=== PATIENT | female | born 1960 | race Caucasian/White ===

== ENCOUNTER 2020-05-18 13:16 | Outpatient (CLI) | payer MEDICARE, MEDICAID, SELFPAY ==
--- NOTE | 2020-05-21 11:03 | WPDPFTINT ---
PFT Interpretation PFT Interpretation: This PFT met all criteria for ATS standards and reproducibility FEV/FVC post bronchodilator 80% FEV1 72% or 1.32 liters FVC 66% or 1.66 liters TLC 83% or 3.21 liters RV 103% RV/TLC 46% DLCO 63% or 12.7 liters when adjusted for alveolar volume but not adjusted for hemoglobin Flow volume loops appeared restricted Impression: No significant obstruction or restriction. Mildly reduced diffusion capacity. In the absence of anemia or pulmonary hypertension, intrinsic lung disease may still be present. Clinical and radiographic correlation is advised.
--- NOTE | 2020-05-21 11:06 | WPDSIXMINUTE ---
Six Minute Walk Six Minute Walk: The patients O2 sats started at 95% and dropped as low as 93% Total walk distance 304.8 meters conclusion: This patient does not qualify for home oxygen use
== END 2020-05-18 13:17 | disposition home or self-care (01) ==
PROVIDERS: PCP Nurse Practitioner; Visit Provider Nurse Practitioner
DX: J45.909 Unspecified asthma, uncomplicated (principal)
CPT/HCPCS: 94060; 94618; 94726; 94729

== ENCOUNTER 2022-08-09 17:36 | Outpatient (CLI) | payer MEDICARE, MEDICAID, SELFPAY ==
--- NOTE | ~2022-08-09 | MM_ITS ---
EXAMINATION: MM screening mackenzie BI w jim HISTORY: Screening mammogram TECHNIQUE: Craniocaudal and mediolateral oblique 3-D tomosynthesis images were obtained and synthetic 2-D images were generated. CAD analysis was submitted and interpreted. COMPARISON: 01/05/2011, 12/14/2009 bilateral screening mammogram examinations BREAST PARENCHYMAL COMPOSITION: The breasts are almost entirely fatty. FINDINGS: There is no evidence of suspicious mass, calcification, or architectural distortion to sugg est malignancy in either breast. There has been no suspicious interval change. IMPRESSION: 1. No mammographic evidence of malignancy. 2. Recommend routine screening mammography in one year. BI-RADS Category 1: Negative Reviewed, dictated and finalized at location A. RS SUPERINTENDENT
== END 2022-08-09 17:37 | disposition home or self-care (01) ==
PROVIDERS: PCP Nurse Practitioner; Visit Provider Nurse Practitioner
DX: Z12.31 Encounter for screening mammogram for malignant neoplasm of breast (principal)
CPT/HCPCS: 77063; 77067

== ENCOUNTER 2022-09-27 10:43 | Outpatient (CLI) | payer MEDICARE, MEDICAID, SELFPAY ==
--- NOTE | ~2022-09-27 | US_ITS ---
US abdomen limited INDICATION: Elevated liver enzymes PROCEDURE: Realtime right upper abdominal ultrasound. COMPARISON: No prior studies for comparison. FINDINGS: The pancreas is normal without focal mass or pancreatic ductal dilation. Liver echotexture is increased, consistent with fatty infiltration. There is normal directional flow in the portal ve in. Gallbladder is surgically absent. Common bile duct measures 7 mm. No sonographic Britt's sign. IMPRESSION: 1: Fatty infiltration of the liver. Reviewed, dictated and finalized at location L. BLENDER
== END 2022-09-27 10:44 | disposition home or self-care (01) ==
PROVIDERS: PCP Nurse Practitioner; Visit Provider Nurse Practitioner
DX: R74.8 Abnormal levels of other serum enzymes (principal); K76.0 Fatty (change of) liver, not elsewhere classified
CPT/HCPCS: 76705

== ENCOUNTER 2022-11-18 14:11 | Outpatient (CLI) | payer MEDICARE, MEDICAID, SELFPAY ==
[2022-11-18 15:07] LABS: Hemoglobin A1C 5.2 % (<5.7)
[2022-11-18 15:11] LABS: Alanine Aminotransferase 51 U/L (6-35); Albumin Level 4.5 g/dL (3.5-5.1); Alkaline Phosphatase 128 U/L (38-126); Anion Gap 4 mmol/L (8-16); Aspartate Amino Transferase 47 U/L (14-36); Bilirubin,Total 0.6 mg/dL (0.2-1.3); Blood Urea Nitrogen 11 mg/dL (7-17); Carbon Dioxide 34 mmol/L (22-30); Chloride 102 mmol/L (98-107); Cholesterol 216 mg/dL (0-200); Estimated Glomerular Filt Rate > 60; Glucose 87 mg/dL (65-110); HDL Direct 87 mg/dL; Sodium 140 mmol/L (137-145); Triglycerides 152 mg/dL (<150)
[2022-11-18 15:17] LABS: Iron 56 ug/dL (37-170)
[2022-11-18 15:22] LABS: LDL Cholesterol Direct 92 mg/dL
[2022-11-18 15:28] LABS: Percent Iron Saturation 13 % (20-50)
[2022-11-18 15:34] LABS: Free T4 Free Thyroxine 1.46 ng/mL (0.78-2.19)
[2022-11-18 15:40] LABS: Thyroid Stimulating Hormone 0.227 uIU/mL (0.465-4.680)
[2022-11-22 21:44] LABS: Mitochondrial (M2) Ab (IgG) <=20.0 U (<=20.0)
[2022-11-23 04:54] LABS: Triiodothyronine T3 Free 3.1 pg/mL (2.3-4.2)
[2022-11-23 21:55] LABS: LKM 1 Antibody <=20.0 U (<=20.0)
== END 2022-11-18 14:12 | disposition home or self-care (01) ==
PROVIDERS: PCP Nurse Practitioner; Visit Provider Internal Medicine Endocrinology, Diabetes & Metabolism
DX: E11.9 Type 2 diabetes mellitus without complications (principal); E03.9 Hypothyroidism, unspecified; E78.5 Hyperlipidemia, unspecified; R74.01 Elevation of levels of liver transaminase levels
CPT/HCPCS: 36415; 80053; 80061; 82248; 83036; 83520; 83540; 83550; 84439; 84443; 84481; 86038; 86376

== ENCOUNTER 2022-11-19 11:14 | Outpatient (NON) | payer MEDICARE, MEDICAID, SELFPAY ==
[2022-11-19 14:13] LABS: Creatinine Urine 42.1 mg/dL
[2022-11-19 14:18] LABS: Microalbumin Urine Random 16.4 mg/L (0-16.7)
== END 2022-11-19 11:15 | disposition home or self-care (01) ==
PROVIDERS: PCP Nurse Practitioner; Visit Provider Internal Medicine Endocrinology, Diabetes & Metabolism
DX: E11.9 Type 2 diabetes mellitus without complications (principal); E03.9 Hypothyroidism, unspecified; E78.5 Hyperlipidemia, unspecified; R74.01 Elevation of levels of liver transaminase levels
CPT/HCPCS: 82043

== ENCOUNTER 2023-04-05 15:58 | Outpatient (CLI) | payer MEDICARE, MEDICAID, SELFPAY ==
--- NOTE | ~2023-04-05 | CT_ITS ---
CT Scan of the Chest without Contrast: Clinical Indication: Pulmonary STACY infection Technique: Contiguous sections were acquired throughout the chest without intravenous contrast. Dose reduction technique was used on this scan by utilizing automated exposure control and iterative recon struction technique. The dose-length product (DLP) was 330.20 mGy-cm. Findings: There is no evidence of any significant mediastinal, hilar or axillary lymphadenopathy. The mediastin al soft tissues appear normal. There is no evidence of pleural or pericardial effusion. There is cystic bronchiectasis in the left lung base/left lower lobe. No other airspace opacities are clearly identified.. Images through the upper abdomen reveal no abnormalities. Impression: Cystic bronchiectatic change at the left lung base/left lower lobe. Reviewed, dictated and finalized at location . Impression: Cystic bronchiectatic change at the left lung base/left lower lobe.
== END 2023-04-05 15:59 | disposition home or self-care (01) ==
PROVIDERS: PCP Nurse Practitioner; Visit Provider Nurse Practitioner
DX: A31.0 Pulmonary mycobacterial infection (principal)
CPT/HCPCS: 71250

== ENCOUNTER 2024-06-18 09:33 | Outpatient (CLI) | payer MEDICARE, MEDICAID, SELFPAY ==
--- NOTE | ~2024-06-18 | US_ITS ---
Limited ABDOMINAL ULTRASOUND (Doppler ultrasound interrogation techniques used as needed for this exa m.) Ordering provider: MARIA C Balderas History: . R74.8 - Abnormal levels of other serum enzymes . Comparison: None. FINDINGS: PANCREAS: Partially visualized. Otherwise, Normal echotexture and size. PORTAL VEIN: Hepatopedal flow demonstrated. LIVER: Normal size and increased echotexture suggestive of fat infiltration. No focal hepatic lesions or perihepatic fluid collections are identified. BILIARY DUCTS: No intra or extrahepatic biliary dilation. Common bile duct measures 7.6 mm in diamete r which is normal for patient's age. GALLBLADDER: Status post cholecystectomy. FREE FLUID: None visualized within the upper abdomen. IMPRESSION: Status post cholecystectomy. Fat infiltration. Otherwise, normal limited abdominal ultrasound. Reviewed, dictated and finalized at location A. ASE CONTROL INSPECTOR IMPRESSION: Status post cholecystectomy. Fat infiltration. Otherwise, normal limited abdomi nal ultrasound.
== END 2024-06-18 09:34 | disposition home or self-care (01) ==
PROVIDERS: Visit Provider Nurse Practitioner Family
DX: R74.8 Abnormal levels of other serum enzymes (principal); K76.0 Fatty (change of) liver, not elsewhere classified; Z90.49 Acquired absence of other specified parts of digestive tract
CPT/HCPCS: 76705

== ENCOUNTER 2025-01-10 08:55 | Outpatient (CLI) | payer MEDICARE, MEDICAID, SELFPAY ==
--- NOTE | ~2025-01-10 | DEXA_ITS ---
Bone Density Report Name: BRYCE MARADIAGA Age: 64 Sex: Female Ethnicity: White Date of : 1960 Indication: postmenopausal; screening for osteoporosis; height loss; Referring Provider: TREY, JAVIER Jones Study: Bone densitometry was performed. Exam Date: January 10, 2025 Accession number: [id number] Bone Density: Region BMD T-score Z-score Classification AP Spine(L1-L4) 0.650 -3.6 -1.9 Osteoporosis Femoral Neck (Left) 0.759 -0.8 0.7 Normal Total Hip (Left) 0.753 -1.5 -0.3 Osteopenia Femoral Neck (Right) 0.626 -2.0 -0.5 Osteopenia Total Hip (Right) 0.800 -1.2 0.0 Osteopenia Total Hip Mean 0.777 -1.4 -0.2 Osteopenia World Health Organization criteria for BMD impression classify patients as: Normal (T-score at or above -1.0), Osteopenia (T-score between -1.0 and -2.5), or Osteoporosis (T-score at or below -2.5). 10-year Fracture Risk: FRAX not reported because: Some T-score for Spine Total or Hip Total or Femoral Neck at or below -2.5 Clinical Information Provided by Patient: Patient maximum height was 59 Menopause Age: 55 No regular weight bearing exercise Drinks caffeinated beverages Onset of menses at age 12 Number of children 2 Impression: The patient has osteoporosis, based on the Total Spine T-score. Discussion: INCREASED RISK OF FRACTURE. BONE DENSITY IS UNDESIRABLY LOW AT ONE OR MORE SKELETAL SITES, CONSISTENT WITH POSTMENOPAUSAL OSTEOPOROSIS. This patient's lowest T-score meets the World Health Organization's (WHO) criteria for osteoporosis at one or more sites (T-score -2.5 or below). In untreated patients, the risk of osteoporotic fracture increases approximately two-fold for each 1.0 SD decrease in T-score. Low bone density is not the only risk factor for fracture; also consider factors such as patient's age, frailty or poor health, risk of falling, risk of injury, previous osteoporotic fracture, family history of osteoporosis, cigarette smoking, low body weight, etc. Not everyone with low bone mineral density has osteoporosis; osteomalacia and other metabolic bone disorders should also be considered. Patients who have osteoporosis should be evaluated for specific diseases and conditions (secondary causes) that may cause or contribute to bone loss. The [place] Association of Clinical Endocrinologists (AACE) and National Osteoporosis Foundation (NOF) recommend pharmacologic intervention for all postmenopausal women whose T-score is in this range. The patient should follow a healthful lifestyle (good nutrition with adequate calcium and vitamin D, and appropriate weight-bearing exercise). Follow-Up: Consider a repeat BMD and Vertebral Fracture Assessment (VFA) exam in 2 years or sooner if medically necessary, to reassess this patient's status. Reported by: JAMIE on 01/10/2025 9:38:00 AM. Reviewed, dictated and finalized at location A.
--- OUTSIDE RECORDS SUMMARY | 2025-01-10 09:02 | XMS_ITS | Encounter Summary ---
Author Organization [facility] Healthcare Address [address] [place] [address] Care Team Providers Care Oil Pit Attendant Name Role Phone Unknown, Sarah Primary Care Provider Unavail able Encounter Details Date Type Department Care Team (Late st Contact Info) Description 01/06/2025 Results Follow-Up [facility] Pulmonary at [address] [place] [address] Ruslan Andre, [address] [facility] [address] [place] [address] Aerobic culture and gram stain Sputum Sputum Social History Tobacco Use Types Packs/Day Years Used Date Smoking Tobacco: Former Cigarettes Passive Smoke Exposure: Past Comments:10/01/2024 Patient said that she only smoked for 10days. 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
--- OUTSIDE RECORDS SUMMARY | 2025-01-10 09:02 | XMS_ITS | Clinical Summary ---
Author Organization [address] Address [address] [place] [id number] Care Team Providers Care Mobility Developer Name Role Phone Unknown, Notinfile Primary Care Provider Unavail able Allergies No known active allergies Medications amitriptyline (ELAVIL) 100 mg tablet Take 1 tablet (100 mg total) by mouth daily 4 Active aspirin 81 mg chewable tablet Take 1 tablet (81 mg total) by mouth daily 3 Active atorvastatin (LIPITOR) 40 mg tablet Take 1 tablet (40 mg total) by mouth daily 3 Active cholestyramine (QUESTRAN) 4 gram powder DISSOLVE 4 GRAMS OF POWDER IN LIQUID AND DRINK THREE TIMES DAILY 4 Active denosumab (Prolia) 60 mg/mL syringe 2 Active ethambutoL (MYAMBUTOL) 400 mg tablet TAKE 2 TABLETS BY MOUTH ON MONDAY, MONDAY AND Monday 2 Active famotidine (PEPCID) 40 mg tablet Take 1 tablet (40 mg total) by mouth daily 4 Active furosemide (LASIX) 20 mg tablet TAKE 1 TABLET BY MOUTH IN THE MORNING FOR 14 DAYS 4 Active icosapent ethyL (Vascepa) 1 gram capsule TAKE 2 CAPSULES BY MOUTH TWICE DAILY BEFORE MEAL(S) 2 Active levothyroxine (SYNTHROID) 150 mcg tablet Take 1 tablet (150 mcg total) by mouth 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 DO NOT EXCEED A TOTAL OF 3 DOSES IN 15 MINUTES [address] (PROTONIX) 40 mg EC tablet TAKE 1 TABLET BY MOUTH ONCE DAILY IN THE MORNING BEFORE BREAKFAST Active potassium chloride ER 10 mEq CR tablet Take 1 tablet/capsule (10 mEq total) by mouth daily Active rifAMPin (RIFADIN) 300 mg capsule Take by mouth 2 Active rOPINIRole (REQUIP) 1 mg tablet TAKE 1 TABLET BY MOUTH IN THE EVENING 2-3 HOURS BEFORE BEDTIME 4 Active benzonatate (TESSALON) 200 mg capsuleIndicatio ns:Acute lower respiratory infection Take 1 capsule (200 mg total) by mouth 3 (three) times a day as needed for cough keep tessalon out of reach of children, especially children under the age of 10, due to possible serious risk such as if ingested by children under the age of 10. 30 capsule 4 Active Additional Information Patient not taking.Reported on 01/02/2025 inhalational spacing device spacer 1 each daily 1 each 5 Active budesonide-formo teroL (Symbicort) 160-4.5 mcg/actuation inhaler Inhale 2 puffs 2 (two) times a day 1 each 11 5 Active Ventolin HFA 90 mcg/actuation inhaler Inhale 2 puffs every 4 (four) hours as needed for wheezing 1 each 11 5 Active Active Problems Problem Noted Date Diagnosed Date Moderate persistent asthma without complication 01/06/2025 Bronchiectasis without acute exacerbation 2024 Encounters Date Type Department Care Team Description 01/06/2025 Results Follow-Up [facility] Pulmonary at [address] [place] [address] Ruslan Andre DO Aerobic culture and gram stain Sputum Sputum 01/02/2025 11:00 AM CDT Office Visit [facility] Pulmonary at [place] [address] [facility] [address] [place] [address] Ruslan Andre DO Moderate persistent asthma without complication (Primary Dx); Bronchiectasis without acute exacerbation (HCC) 01/02/2025 9:59 AM CDT - 01/02/2025 11:59 PM CDT Hospital Encounter [facility] [address] [place] [address] Bronchiectasis without acute exacerbation (HCC) Discharge Disposition: Discharge to home or self care from Last 3 Months Medical History Medical History Date Comments COPD (chronic obstructive pulmonary disease) (HC C) Asthma Family History Medical History Relation Name Comments COPD Father Diabetes Father Heart disease Father COPD Mother Heart disease Mother COPD Sister Mariella lorenzo dm Sister Mariella Relation Name Status Comments Father Mother Sister Mariella Alive Social History Tobacco Use Types Packs/Day Years Used Date Smoking Tobacco: Former Cigarettes Passive Smoke Exposure: Past Tobacco Cessation:Counseling Given: Not Answered Comments:10/01/2024 Patient said that she only smoked for 10days. 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 Gender Identity Not on file Sexual Orientation Not on file Obstetrics History Last Filed Vital Signs Vital Sign Reading Time Taken Comments Blood Pressure 129/82 01/02/2025 10:26 AM CDT Pulse 101 01/02/2025 10:26 AM CDT Temperature 36.5 C (97.7 F) 01/02/2025 10:26 AM CDT Respiratory Rate 18 01/02/2025 10:26 AM CDT Oxygen Saturation 96% 01/02/2025 10:26 AM CDT Inhaled Oxygen Concentration - - Weight 78.7 kg (173 lb 6.4 oz) 01/02/2025 10:26 AM CDT Height 162.6 cm (5' 4) 01/02/2025 10:26 AM CDT Body Mass Index 29.76 01/02/2025 10:26 AM CDT Plan of Treatment Health Maintenance Due Date Last Done Comments Colon Cancer Screening-Colonoscopy 1960 Depression Screening 1960 Hepatitis C Screening 1960 DTaP/Tdap/Td Vaccine (1 - Tdap) 1971 Hepatitis B Screening 1978 Regular Well Visit/Exam 18-64 1978 Breast Cancer Screening-Mammogram 08/09/2023 023, 08/09/2022 Covid-19 Vaccine (3 - 2023-2 5 season) 2024 11/21/2020, 10/27/2020 Cervical Cancer Screening 07/22/2025 07/22/2024 Pneumococcal vaccine <65 (3 of 3 - PCV20 or PCV21) 05/23/2027 05/23/2022, 11/23/2015 Zoster Vaccine Completed 06/12/2023, 03/31/2023 Influenza Vaccine Completed 05/30/2024, , 05/23/2022, Additional history exists Procedures Procedure Name Priority Date/Time Associated Diagnosis Comments AEROBIC CULTURE AND GRAM STAIN Routine 01/02/2025 10:12 AM CDT Bronchiectasis without acute exacerbation (HCC) from Last 3 Months Results * Aerobic culture and gram stain Sputum Sputum (01/02/2025 10:12 AM CDT) Direct Specimen Exam Stain: Abundant squamous epithelial cells seen indicating excessive oropharyngeal contamination. Culture will not be processed further. Please submit another specimen. Smear results called to and read back by: Sandy Klein MT on 01/02/2025 13:36:00 by: Abdifatah Hanna MLS Comment:Testing performed by : [facility], [address] [place] [address], [place]., [address] Report Final Report: This is the final report. PRINCE PETERSON (BELA) Comment:Testing performed by : [facility], [address] [place]., [address] Sputum (Sputum) 01/02/2025 1 0:12 AM CDT 01/02/2025 12:23 PM CDT Narrative PRINCE PETERSON (BELA) - 01/03/2025 8:00 AM CDT Testing performed by [facility] Microbiology Laboratory ([phone]) Specimens submitted from normally sterile body sites will have all bacterial morphotypes identified. Specimens that contain grossly mixed aminah and/or are from body sites that are not normally sterile will be examined for Staphylococcus aureus, Pseudomonas aeruginosa, beta-hemolytic strep, vancomycin-resistant Enterococcus and fungus. If any of these are isolated, the organism will be reported. Current interpretive data was last revised on 2016. Ruslan Jaylonsrinath Andre DO LAB MICROBIOLOGY - GENERA L ORDERABLES Final Result [facility] ([place]) [address] [facility] Department [place] [address] from Last 3 Months Insurance [facility] MEDICARE Care Teams Mobility Developer Relationship Specialty Start Date End Date Unknown, Notinfile PCP - General 09/20/23
--- OUTSIDE RECORDS SUMMARY | 2025-01-10 09:02 | XMS_ITS | Referral Summary ---
Author Organization [address] Address [address] [place] [id number] Care Team Providers Care Help Desk Analyst Name Role Phone Unknown, Notinfile Primary Care Provider Unavail able Encounters Date Type Department Care Team Description 01/06/2025 Results Follow-Up [facility] Pulmonary at [address] [place] [address] Ruslan Andre DO Aerobic culture and gram stain Sputum Sputum 01/02/2025 9:59 AM CDT - 01/02/2025 11:59 PM CDT Hospital Encounter [address] [phone] Bronchiectasis without acute exacerbation (HCC) Discharge Disposition: Discharge to home or self care 01/02/2025 11:00 AM CDT Office Visit [facility] Pulmonary at [address] [place] [phone] Ruslan Andre DO Moderate persistent asthma without complication (Primary Dx); Bronchiectasis without acute exacerbation (HCC) from Last 3 Months Allergies No known active allergies Medications amitriptyline [...] 1 tablet (150 mcg total) 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, [address] [place]., [address] Report Final Report: This is the final report. PRINCE PETERSON (BELA) Comment:Testing performed by : [facility], [address] [place]., [address] Sputum (Sputum) 01/02/2025 1 0:12 AM CDT 01/02/2025 12:23 PM CDT Narrative PRINCE PETERSON ([place]ELA) - 01/03/2025 8:00 AM CDT Testing performed by [facility] Microbiology Laboratory ([phone]) Specimens submitted from normally sterile body sites will have all bacterial morphotypes identified. Specimens that contain grossly mixed aminah and/or are from body sites that are not normally sterile will be examined for Staphylococcus aureus, Pseudomonas aeruginosa, beta-hemolytic strep, vancomycin-resistant Enterococcus and fungus. If any of these are isolated, the organism will be reported. Current interpretive data was last revised on 2016. Ruslan Andre DO LAB MICROBIOLOGY - GENERA L ORDERABLES Final Result PRINCE PETERSON ([place]) [address] [facility] Department [place] [address] from Last 3 Months Insurance [place] [id number] Care Teams Help Desk Analyst Relationship Specialty Start Date End Date Unknown, Notinfile PCP - General 09/20/23
--- OUTSIDE RECORDS SUMMARY | 2025-01-10 09:03 | XMS_ITS | Data Portability ---
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 Plan of Treatment Reminders Order Date Submit Date Provider Last Modified By Organization Details Last Modified Time Details Appointments None recorded. Lab None recorded. Referral endocrinolo gy referral 2022 023 [email or web address] Janey Richardson MD, [address],, [address], [address], 3 15:38:59 Procedures None recorded. Surgeries None recorded. Imaging CT, chest, w/o contrast [address] [facility], [address] [facility] [address], [place], [address], 3 09:46:46 Medication Orders levothyroxi ne 150 mcg tablet 2022 023 [facility] [place], [address], 3 16:28:34 Patient TargetsNo targets recorded. Patient InstructionsNo instructions recorded. Reason for Referral Endocrinology Referral for W ell controlled type 2 diabetes mellitus Referring Physician: Betty Diallo, Endocrinology, Encounter Date: 2023 Results Created Date Observation Date Name Description Value Unit Range Abnormal Flag Note LastModifiedBy Organization Detail LastModifiedTime 04/06/20 23 04/05/2023 CT, chest , w/o contr ast No observ ation record ed. [email or web address] [place] [address] Imaging [address] [facility] [address], [place], [address], 04/09/2023 15:40:04 Result Notes None recorded. 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 Active 2020 Not Available [facility] 3 02:45:43 Insomnia 991086768 Active Not Available [facility] 3 02:45:43 Asthma 351521529 Active Not Available [facility] 3 02:45:43 Gastroesop hageal reflux disease 429355171 Active 2018 Not Available [facility] 3 02:45:43 Heart irregularl y irregular 939639884 Completed Not Available [facility] 3 02:45:43 Gastroesop hageal reflux disease without esophagiti s 723642113 Active 2021 Not Available [facility] 3 02:45:43 Menopausal and postmenopa usal disorders 750354243 Active Not Available [facility] 3 02:45:43 Dyspnea 211187246 Active Not Available [facility] 3 02:45:43 Restless legs 66508938 Active Not Available [facility] 3 02:45:43 Restrictiv e lung disease 23081341 Active Not Available [facility] 3 02:45:43 Hypertensi ve disorder 67253734 Active Not Available [facility] 3 02:45:43 Dysphagia 67970940 Active 2021 Not Available [facility] 3 02:45:43 Hypothyroi dism 09828552 Active 2018 Not Available [facility] 3 02:45:43 Obesity 124746687 Active Not Available [facility] 3 02:45:44 Periodic limb movement disorder 684835226 Active Not Available [facility] 3 02:45:44 Hyperlipid emia 42567802 Active Not Available [facility] 3 02:45:44 Dyspnea on exertion 07194812 Active 2020 Not Available [facility] 3 02:45:44 Osteoporos is 52214029 Active Not Available [facility] 3 02:45:44 Obstructiv e sleep apnea syndrome 63500582 Active Not Available [facility] 3 02:45:44 Well controlled type 2 diabetes mellitus 679934440 Active 2022 Abbi Booth RMA null, [facility] 3 15:15:59 Dyslipidem ia 100523434 Active 2022 Abbi Booth RMA null, [facility] 3 15:16:49 Problem Notes None recorded. Procedures Surgical History Date Name Laterality Status Provider Name and Address Organization Details Recorded Time 11/01/2021 Endoscopy completed Not Available [facility] 09/28/2022 02:40:33 Imaging Results None recorded. Procedure Notes None recorded. Medical Equipment None Reported. Allergies Allergen ID Allergen Name Allergen Category Reaction Reaction Severity Criticality Documentation Date Start Date Code Code System Note Provider Name and Address Organization Details Recorded Time 3969 amlodipin e medicatio n dizziness Not available Not available 09/28/2022 76906 RxNorm Not Available [facility] 3 02:51:43 Medications Name Sig Start Date Stop Date Status Note LastModified by Organization Details LastModified Time losartan 50 mg tablet TK ONE T PO QAM FOR 30 DAYS active Not Available Not Available No t Available cyclobenz aprine 10 mg tablet TK 1 T PO QHS active Not Available Not Available No t Available amoxicill in 500 mg capsule Take 1 capsule 3 times a day by oral route for 7 days. active Not Available Not Available No t Available atorvasta tin 40 mg tablet TAKE 1 TABLET BY MOUTH NIGHTLY AT BEDTIME active Not Available Not Available No t Available levothyro xine 137 mcg tablet TAKE 1 TABLET BY MOUTH ONCE DAILY IN THE MORNING 03/20 completed Not Available Not Available Not Available prednison e 10 mg tablet Take by oral route. active Not Available Not Available No t Available atorvasta tin 20 mg tablet TAKE 1 TABLET BY MOUTH NIGHTLY AT BEDTIME active Not Available Not Available No t Available carvedilo l 12.5 mg tablet Take 1 tablet twice a day by oral route. 2013 active Not Available Not Available Not Avai lable ropinirol e 1 mg tablet TAKE 1 TABLET BY MOUTH IN THE EVENING 2-3 HOURS BEFORE BEDTIME active Not Available Not Available No t Available trazodone 50 mg tablet TK 1 T PO QHS active Not Available Not Available No t Available azithromy luis felipe 250 mg tablet Take 1 dose pk by oral route. 02/24 completed Not Available Not Available Not Available nitroglyc ponce 0.3 mg sublingua l tablet DISSOLVE ONE TABLET UNDER THE TONGUE EVERY 5 MINUTES NEEDED FOR CHEST PAIN. DO NOT EXCEED A TOTAL OF 3 DOSES IN 15 MINUTES NOW active Not Available Not Available No t Available metoprolo l tartrate 100 mg tablet Take 1 tablet by oral route. 12/01 completed Not Available Not Available Not Available benzonata te 200 mg capsule Take 1 capsule 3 times a day by oral route as needed. 02/03 completed Not Available Not Available Not Available metoprolo l succinate ER 50 mg tablet,ex tended release 24 hr TK 1 T PO D active Not Available Not Available No t Available ondansetr on HCl 4 mg tablet 02/24 completed Not Available Not Available Not Available prednison e 20 mg tablet active Not Available Not Available Not Available alendrona te 70 mg tablet TAKE 1 TABLET BY MOUTH EVERY WEEK active Not Available Not Available No t Available metoprolo l succinate ER 100 mg tablet,ex tended release 24 hr TAKE 1 TABLET BY MOUTH ONCE DAILY active Not Available Not Available No t Available Children' s Aspirin 81 mg chewable tablet CHEW AND SWALLOW 1 TABLET BY MOUTH ONCE DAILY active Not Available Not Available No t Available Debrox 6.5 % ear drops active Not Available Not Available Not Available potassium chloride ER 10 mEq tablet,ex tended release TAKE 1 TABLET BY MOUTH ONCE DAILY active Not Available Not Available No t Available amlodipin e 5 mg tablet Take 1 tablet every day by oral route. active Not Available Not Available No t Available ciproflox acin 500 mg tablet TK 1 T PO Q 12 H FOR 10 DAYS active Not Available Not Available No t Available peg-elect rolyte solution 420 gram oral solution TK PO UTD. DRK HALF AT 5 PM ON 07/17 AND HALF AT 5 AM ON 07/18 completed Not Available Not Available Not Available omeprazol e 40 mg capsule,d elayed release TAKE 1 CAPSULE BY MOUTH ONCE DAILY active Not Available Not Available No t Available tramadol 50 mg tablet Take 1 tablet twice a day by oral route as needed for 5 days. 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 04/27 completed Not Available Not Available Not Available oxycodone -acetamin ophen 5 mg-325 mg tablet 02/24 completed Not Available Not Available Not Available rifampin 300 mg capsule TAKE ONE TABLET BY MOUTH ON MONDAY, , AND MONDAY active Not Available Not Available No t Available amitripty line 25 mg tablet Take 1 tablet every day by oral route. active Not Available Not Available No t Available Euthyrox 125 mcg tablet TAKE 1 TABLET BY MOUTH ONCE DAILY IN THE MORNING 11/04 completed Not Available Not Available Not Available Euthyrox 112 mcg tablet TAKE 1 TABLET BY MOUTH ONCE DAILY IN THE MORNING FOR 30 DAYS 11/10 completed Not Available Not Available Not Available trazodone 100 mg tablet TK 1 T PO QHS 02/24 completed Not Available Not Available Not Available ropinirol e 0.25 mg tablet Take 1 tablet every day by oral route. active Not Available Not Available No t Available ethambuto l 400 mg tablet TAKE 2 TABLETS BY MOUTH ON MONDAY, Y AND MONDAY active Not Available Not Available No t Available levothyro xine 50 mcg tablet TK 1 T PO QAM active Not Available Not Available No t Available pantopraz ole 40 mg tablet,de layed release TAKE 1 TABLET BY MOUTH ONCE DAILY IN THE MORNING BEFORE BREAKFAS T active Not Available Not Available No t Available simvastat in 20 mg tablet TAKE 1 TABLET BY MOUTH EVERY DAY active Not Available Not Available No t Available Euthyrox 88 mcg tablet Take 1 tablet by oral route. 12/01 completed Not Available Not Available Not Available cyanocoba awais (vit B-12) 1,000 mcg/mL injection solution Inject 1 mL every week by subcutan eous route in the morning for 90 days. 03/20 completed Not Available Not Available Not Available levothyro xine 150 mcg tablet TAKE 1 TABLET BY MOUTH ONCE DAILY IN THE MORNING active Not Available Not Available No t Available Prevalite 4 gram powder for suspensio n in a packet DISSOLVE 1 PACKET IN WATER & DRINK THREE TIMES DAILY active Not Available Not Available No t Available lisinopri l 20 mg-hydroc hlorothia zide 25 mg tablet TAKE 1 TABLET BY MOUTH ONCE DAILY active Not Available Not Available No t Available bisacodyl 5 mg tablet,de layed release TK ALL 6 TS PO AT 8 AM ON 07/17 completed Not Available Not Available Not Available furosemid e 20 mg tablet TAKE 1 TABLET BY MOUTH IN THE MORNING FOR 14 DAYS active Not Available Not Available No t Available mirtazapi ne 15 mg tablet TK 1 T PO QD PRN. active Not Available Not Available No t Available ergocalci ferol (vitamin D2) 1,250 mcg (50,000 unit) capsule Take 1 capsule every week by oral route. active Not Available Not Available No t Available lisinopri l 10 mg-hydroc hlorothia zide 12.5 mg tablet TAKE 1 TABLET BY MOUTH ONCE DAILY active Not Available Not Available No t Available methylpre dnisolone 4 mg tablets in a dose pack FPD 01/15 completed Not Available Not Available Not Available losartan 100 mg tablet TK 1 T PO QD active Not Available Not Available No t Available metformin ER 500 mg tablet,ex tended release 24 hr active Not Available Not Available Not Available amitripty line 100 mg tablet TAKE 1 TABLET BY MOUTH NIGHTLY AT BEDTIME active Not Available Not Available No t Available Ambien 5 mg tablet Take 1 tablet every day by oral route at bedtime. 2013 active Not Available Not Available Not Avai lable dicyclomi ne 10 mg capsule TK ONE C PO TID PRN 04/27 completed Not Available Not Available Not Available naproxen 500 mg tablet TAKE 1 TABLET BY MOUTH ONCE DAILY NEEDED active Not Available Not Available No t Available amoxicill in 875 mg-potass ium clavulana te 125 mg tablet TK 1 T PO Q 12 H FOR 10 DAYS 02/24 completed Not Available Not Available Not Available Ventolin HFA 90 mcg/actua tion aerosol inhaler INHALE 2 PUFFS BY MOUTH EVERY 4 HOURS NEEDED FOR WHEEZING active Not Available Not Available No t Available cholecalc iferol (vitamin D3) 25 mcg (1,000 unit) capsule Take 1 tablet by oral route. 03/20 completed Not Available Not Available Not Available azithromy luis felipe 500 mg tablet TAKE 1 TABLET BY MOUTH ON MONDAY, AND 03/20 completed Not Available Not Available Not Available cholestyr amine (with sugar) 4 gram powder for susp in a packet DISSOLVE & TAKE 1 POWDER BY MOUTH THREE TIMES DAILY 04/25 completed Not Available Not Available Not Available potassium chloride ER 10 mEq tablet,ex tended release(p art/cryst ) Take 1 tablet by oral route. 12/01 completed Not Available Not Available Not Available nitrofura ntoin monohydra te/macroc rystals 100 mg capsule 03/30 completed Not Available Not Available Not Available lisinopri l-hydroch lorothiaz coby active Not Available Not Available Not Available Calcium 500 + D 10/23 completed Not Available Not Available Not Available fenofibra te nanocryst allized 48 mg tablet TAKE 1 TABLET BY MOUTH IN THE EVENING 03/20 completed Not Available Not Available Not Available Symbicort 160 mcg-4.5 mcg/actua tion HFA aerosol inhaler INHALE 2 PUFFS BY MOUTH TWICE DAILY active Not Available Not Available No t Available Prolia 60 mg/mL subcutane ous syringe Inject 1ML SC q 6 months- bring to PCP office for administ ration active Pt brought in medicati on Not Available Not Available Not Available Vitamin D3 50 mcg (2,000 unit) capsule Take 1 capsule every day by oral route. 11/30 completed Not Available Not Available Not Available Caltrate with Vitamin D3 600 mg-20 mcg (800 unit) tablet Take 1 tablet by oral route. 03/20 completed Not Available Not Available Not Available Vascepa 1 gram capsule Take 2 capsules twice a day by oral route before meals for 90 days. active Not Available Not Available No t Available Trulicity 1.5 mg/0.5 mL subcutane ous pen injector INJECT 1 MG SUBCUTAN EOUSLY ONCE A WEEK AT DINNER 03/20 completed Not Available Not Available Not Available Trulicity 0.75 mg/0.5 mL subcutane ous pen injector INJECT 1 PEN SUBCUTAN EOUSLY ONCE A WEEK 05/05 completed Not Available Not Available Not Available Spiriva Respimat tk 2 puffs 2 times daily 01/22 completed Not Available Not Available Not Available Spiriva Respimat 1.25 mcg/actua tion solution for inhalatio n 2 pufs by inhalati on route. 2021 active Not Available Not Available Not Avai lable Bydureon BCise 2 mg/0.85 mL subcutane ous auto-inje ctor INJECT 1 SYRINGE SUB-Q ONCE A WEEK AT DINNER active Not Available Not Available No t Available Ozempic 0.25 mg or 0.5 mg (2 mg/1.5 mL) subcutane ous pen injector INJECT 0.5 MG SUBCUTAN EOUSLY ONCE WEEKLY AT DINNER 11/04 completed Not Available Not Available Not Available Afluria Qd (36 mos up)(PF)60 mcg (15 mcg x4)/0.5 mL IM syringe ADM 0.5ML IM UTD 06/05 completed Not Available Not Available Not Available Ozempic 1 mg/dose (4 mg/3 mL) subcutane ous pen injector Inject by subcutan eous route for 90 days. 02/03 completed Not Available Not Available Not Available aspirin 81 mg capsule Take 1 capsule every day by oral route. active Not Available Not Available No t Available Vitals Date Recorded Body height Body mass index (BMI) Body weight Heart rate Oxygen saturation Oxygen saturation in Arterial blood by Pulse oximetry Systolic blood pressure Diastolic blood pressure Provider Name and Address Organization Details Last Updated DateTime 3 149.86 cm 36 kg/m2 15007.4 4 g 80 /min 96 % 96 % 118 mm[Hg] 84 mm[Hg] Lenore Gibbons [facility] [employer] 3 14:39:59 Date Recorded Body height Body mass index (BMI) Body weight Body temperature Respiratory rate Heart rate Systolic blood pressure Diastolic blood pressure Provider Name and Address Organization Details Last Updated DateTime 3 149.86 cm 34 kg/m2 31123.9 6 g 97.8 [degF] 16 /min 71 /min 156 mm[Hg] 96 mm[Hg] Minal Saldana RN [facility] [employer] 3 15:02:41 Date Recorded Body mass index (BMI) Body mass index (BMI) Body height Oxygen saturation Oxygen saturation in Arterial blood by Pulse oximetry Heart rate Body temperature Body weight Body weight Systolic blood pressure Diastolic blood pressure Systolic blood pressure Diastolic blood pressure Provider Name and Address Organization Details Last Updated DateTime 2 34.9 kg/m2 34.7 kg/m2 149.86 cm 98 % 98 % 70 /min 97.4 [degF] 68627.4 8 g 60221.8 9 g 105 mm[Hg] 80 mm[Hg] 118 mm[Hg] 76 mm[Hg] Not Available [facility] 3 02:44:36 Date Recorded Body height Body mass index (BMI) Body weight Body temperature Heart rate Oxygen saturation Oxygen saturation in Arterial blood by Pulse oximetry Systolic blood pressure Diastolic blood pressure Provider Name and Address Organization Details Last Updated DateTime 3 149.86 cm 32.9 kg/m2 09463.5 6 g 97.2 [degF] 52 /min 99 % 99 % 150 mm[Hg] 78 mm[Hg] Lenore Gibbons [facility] [employer] 3 14:22:34 Date Recorded Body height Body temperature Provider Ashely alexandra and Address Organization Details Last Updated DateTime 06/26/2023 149.86 cm 96.4 [degF] Ann Pelayo MA [facility] [employer] 06/26/2023 14:06:51 Social History Question Answer Notes LastModified by Organizat ion Details LastModified Time Tobacco Smoking Status Former Smoker Not Available [facility] 09/28/2022 02:39:04 Do You Have An Advance Directive? No [id number] Information not available 09/28/2022 What Is Your Level Of Caffeine Consumption? Moderate [id number].[id number] Information not available 09/28/2022 How Much Tobacco Do You Chew? None [id number].[id number] Information not available 09/28/2022 In The 14 Days Before Symptom Onset, Have You Had Close Contact With A Laboratory-confirm ed COVID-19 While That Case Was Ill? No [id number] Information not available 09/28/2022 In The 14 Days Before Symptom Onset, Have You Had Close Contact With A Person Who Is Under Investigation For COVID-19 While That Person Was Ill? No [id number] Information not available 09/28/2022 What Type Of Diet Are You Following? REGULAR [id number] Information not available 09/28/2022 Which Illicit Or Recreational Drugs Have You Used? None [id number].[id number] [id number] Information not available 09/28/2022 What Is The Highest Grade Or Level Of School You Have Completed Or The Highest Degree You Have Received? [id number] [id number].[id number] 5150 Information not available 09/28/2022 Have There Been Any Changes To Your Family Or Social Situation? No [id number].[id number] 8499 Information not available 09/28/2022 Are There Any Guns Present In Your Home? No [id number] Information not available 09/28/2022 Where Do You Live? Apartment MIGRATION .[id number] Information not available 09/28/2022 Do You Have A Medical Power Of Cloud Subject Matter Expert? No [id number] 0382 Information not available 09/28/2022 What Was The Date Of Your Most Recent Tobacco Screening? 05/05/2022 [id number] Information not available 09/28/2022 Have You Ever Been Counseled For Unhealthy Alcohol Use? No MIGRATION.380461 1251 Information not available 09/28/2022 What Is Your Relationship Status? MIGRATION.507229 6442 Information not available 09/28/2022 Do You Use Your Seat Belt Or Car Seat Routinely? Yes [id number].[id number] Information not available 09/28/2022 Do You Have Smoke And Carbon Monoxide Detectors In Your Home? Yes [id number].[id number] 5160 Information not available 09/28/2022 Are You Passively Exposed To Smoke? No MIGRATION.411454 0646 Information not available 09/28/2022 Do You Use Sunscreen Routinely? No MIGRATION.[id number] 1248 Information not available 09/28/2022 Have You Recently Traveled Abroad? No MIGRATION.[id number] 3488 Information not available 09/28/2022 Do You Have Any Dietary Restrictions? No MIGRATION.646639 1165 Information not available 09/28/2022 Sex: Female Functional Status Question Answer Note LastModified by Organizat ion Details LastModified Time Do you use any illicit or recreational drugs? No MIGRATION.[id number] 9605 Information not available 09/28/2022 Do you or have you ever used any other forms of tobacco or nicotine? No MIGRATION.[id number] 1328 Information not available 09/28/2022 What is your level of alcohol consumption? Moderate MIGRATION.825351 6743 Information not available 09/28/2022 Do you or have you ever used smokeless tobacco? Never used smokeless tobacco MIGRATION.[id number] 2067 Information not available 09/28/2022 What is your occupation? disabled MIGRATION.011380 2511 Information not available 09/28/2022 Do you or have you ever used e-cigarettes or vape? Never used electronic cigarettes MIGRATION.475341 9849 Information not available 09/28/2022 What is your exercise level? Moderate MIGRATION.[id number] 9394 Information not available 09/28/2022 Mental Status Question Answer Note LastModified by Organizat ion Details LastModified Time Do you feel stressed (tense, restless, nervous, or anxious, or unable to sleep at night)? [id number] Information not available 09/28/2022 Family History Nothing Reported. Medical History Condition Response OTHER # 1 LUNG DISEASE/DISORDER INSOMNIA Y HIGH CHOLESTEROL / HYPERLIPIDEMIA Y HYPOTHYROIDISM Y OBESITY Y GERD/NAUSEA Y OSTEOPOROSIS Y DIABETES, TYPE Y HYPERTENSION Y Gynecological HistoryNo gynecological history recorded. Obstetrics History GPAL:G 0 P 0 0 0 0 Immunizations Vaccine Type Date Status Note Provider Nam e and Address Organization Details Recorded Time Influenza, split virus, quadrivalent, preservative 0 completed Not Available [facility] 09/28/2022 02:51:35 Influenza, split virus, quadrivalent, preservative 9 completed Not Available [facility] 09/28/2022 02:51:35 COVID-19, mRNA, LNP-S, PF, 30 mcg/0.3 mL dose 1 completed Not Available [facility] 09/28/2022 02:51:35 COVID-19, mRNA, LNP-S, PF, 30 mcg/0.3 mL dose 1 completed Not Available [facility] 09/28/2022 02:51:36 Influenza, split virus, quadrivalent, PF 1 completed Not Available [facility] 09/28/2022 02:51:36 Influenza, split virus, quadrivalent, PF 7 completed Not Available [facility] 09/28/2022 02:51:36 Influenza, split virus, quadrivalent, preservative 6 completed Not Available [facility] 09/28/2022 02:51:36 pneumococcal polysaccharide PPV23 6 completed Not Available [facility] 09/28/2022 02:51:36 Past Encounters Encounter ID Performer Location Encounter Start Date Encounter Closed Date Diagnosis/Indication Diagnosis SNOMED-CT Code Diagnosis ICD10 Code Diagnosis Note [id number] [facility] [address] [place] [id number] 10/23/2020 00:00:00 10/23/2020 15:35:16 [id number] MD NIK Uriostegui IGRATION_ DEFAULT_1 _1 , 11/10/2020 00:00:00 11/10/2020 17:14:21 [id number] [facility] [address] [place] [id number] 01/22/2021 00:00:00 01/22/2021 16:49:31 [id number] Manju weston MD S_[facility] Internal Med [facility] [address] [place] [id number] 02/09/2021 00:00:00 02/09/2021 14:01:42 [id number] MD NIK Uriostegui IGRATION_ DEFAULT_1 _1 , 03/09/2021 00:00:00 03/09/2021 17:15:19 [id number] MD NIK Driver IGRATION_ DEFAULT_1 _1 , 03/18/2021 00:00:00 03/18/2021 13:26:40 [id number] [facility] [place] [facility] [place] [address] [place] [address] 03/26/2021 00:00:00 03/26/2021 15:41:01 [id number] Manju weston MD [facility] [facility] [address] [place] [address] 05/18/2021 00:00:00 05/18/2021 13:39:59 [id number] [facility] [place] [address] [place] [address] 06/01/2021 00:00:00 06/01/2021 15:49:45 [id number] MD NIK Driver IGRATION_ DEFAULT_1 _1 , 07/01/2021 00:00:00 07/01/2021 10:54:31 [id number] Manju weston MD S_GMG Internal Med [facility] [address] [place] [address] 08/17/2021 00:00:00 08/17/2021 15:04:01 [id number] [facility] Pul[facility] [place] [address] [place] [address] 09/28/2021 00:00:00 09/28/2021 15:37:22 [id number] _STACI EPSTEIN_Sadia _NATHALIE_Lisa IGRATION_ DEFAULT_1 _1 , 10/13/2021 00:00:00 10/13/2021 14:56:30 [id number] MD NIK Driver IGRATION_ DEFAULT_1 _1 , 11/04/2021 00:00:00 11/04/2021 10:09:37 [id number] Manju weston MD [facility] [address] [address] 11/04/2021 00:00:00 11/04/2021 17:35:15 [id number] _ATHN_MIGR ATION_1 _ATHISRRAEL_M IGRATION_ DEFAULT_1 _1 , 12/01/2021 00:00:00 12/01/2021 15:29:35 [id number] NATALIE Hills [facility] [place] [place] [address] [place] [address] 01/14/2022 00:00:00 01/14/2022 16:03:30 [id number] Manju weston MD [facility] [address] [address] 02/03/2022 00:00:00 02/03/2022 10:43:37 [id number] Manju weston MD [facility] [address] [address] 05/05/2022 00:00:00 05/05/2022 14:52:25 [id number] Betty Diallo MD _ATHENA_M IGRATION_ DEFAULT_1 _1 , 05/05/2022 00:00:00 05/05/2022 10:28:08 [id number] [facility] [place] [address] [place] [address] 01/18/2023 14:08:43 01/18/2023 17:55:22 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 Completed triple therapy (started 07/2020)18 months + of treatmentC XR WNL he ck CT chest Bronchiectasis [id number] J47.9 Continue flutter valve Obstructiv e sleep apnea syndrome [id number] G47.33 Home study 11/15/18 with AHI 5.2.She remains on CPAP 10 cmH2O.With consistent use her AHI is well correctedD iscussed the tisks of uncorrecte d RK, including deathEncou raged 100% compliance with all sleepDiscu ssed the risks of uncorrecte d RK, including .Foll ow with PCM for labsAdvise d good sleep habits and patterns:- Set a goal for at least 7 to 8 hours of sleep time per day.-Use the bed mainly for sleep and to go to bed only when tired. If unable to fall asleep after 30 minutes, patient should get out of bed but should not engage in any activity that requires sustained mental alertness. -Maintain a regular bedtime and wake-up time even on weekends-A void excessive naps during the daytime. If a nap is necessary, limit it to no more than 30 minutes.-M inimize environmen mane noise, bright lights, and extremes in bedroom temperatur e.-Avoid alcohol, caffeinate d beverages, and nicotine products for at least 6 hours prior to bedtime.-A void strenuous exercise and large meals for at least 4 hours prior to bedtime. [id number] Betty Diallo MD [facility]G [facility] [place] [address] [place] [address] 2023 14:58:46 2023 15:38:59 Well controlled type 2 diabetes mellitus [id number] E11.9 a1c in range- continue metformin and trulicity 1.5 mg SQ weekly. Discussed carb counting and how to read food labels. Recommende d patient to utilize the diabetesfo [employer] from the ADA website to help with food preparatio n as this presents ideal carb content per meal so this will make carb counting much easier for patient. Recommende d she incorporat e natural insulin order taker s such as pears, apples, cinnamon, anni and sweet potatoes to help mobilize her endogenous insulin. Recommende d up to 150 minutes of moderate level activity/e xercise weekly. Hypothyroidism [id number] E03.9 Continue on LT4 but uptitrate to 150 mcg daily- she just picked up higher dose as TSH of 7 uIU/mL on lower dose. She was reminded to take her LT4 on empty stomach with glass of water and wait one hour to eat or have her coffee in morning and up to 4 hours if ever taking any heartburn or reflux medication s to help optimize absorption . Discussed paleo like diet with restrictio n of GMOs to help with energy and to optimize absorption of vitamins and minerals and reduce inflammati on. Dyslipidemia [id number] E 78.5 Continue statin therapy as LDL in range. Spent up to 25 minutes preparing to see the patient (eg, review of tests), obtaining and/or reviewing separately obtained history, performing a medically appropriat e examinatio n and evaluation , counseling and educating the patient, ordering medication s, tests, along with documentin g clinical informatio n in the electronic health record, independen tly interpreti ng results and communicat ing results to the patient. Patient can be followed by PCP - she/he is aware of my resignatio n and last day of May 12. If needed his/her PCP can refer patient to another endocrinol ogist in the area. All questions /concerns answered and refills necessary at visit today. [id number] Cristel Dior, [facility]monolo gy [place] [address] [place] [address] 05/12/2023 14:00:26 05/12/2023 15:02:10 Bronchiectasis [id number] J47.9 REordered flutter valve today and instruted on use. Pulmonary Mycobacterium avium complex infection [id number] A31.0 Completed triple therapy (started 07/2020)18 months + of treatmentC XR WNL 2CT chest 03/2023 with persistent bronchiect asis to LLL, unchanged. Flutter valve as above Obstructiv e sleep apnea syndrome [id number] G47.33 Home study 11/15/18 with AHI 5.2.She remains on CPAP 10 cmH2O.With consistent use her AHI was well correctedD iscussed the risks of uncorrecte d RK, including deathWill order repair through the [employer] with PCM for labsAdvise d good sleep habits and patterns:- Set a goal for at least 7 to 8 hours of sleep time per day.-Use the bed mainly for sleep and to go to bed only when tired. If unable to fall asleep after 30 minutes, patient should get out of bed but should not engage in any activity that requires sustained mental alertness. -Maintain a regular bedtime and wake-up time even on weekends-A void excessive naps during the daytime. If a nap is necessary, limit it to no more than 30 minutes.-M inimize environmen mane noise, bright lights, and extremes in bedroom temperatur e.-Avoid alcohol, caffeinate d beverages, and nicotine products for at least 6 hours prior to bedtime.-A void strenuous exercise and large meals for at least 4 hours prior to bedtime. [id number] Cristel Dior, [employer]- [facility]G Pulmonolo gy [place] [address] [place] [address] 06/26/2023 14:01:49 06/26/2023 15:15:31 Bronchiectasis [id number] J47.9 Continue flutter valveDiscu ssed the risks of bronchiect asis and the importance of mucous clearance Pulmonary Mycobacterium avium complex infection [id number] A31.0 Completed triple therapy (started 07/2020)18 months + of treatmentC XR WNL T chest 03/2023 with persistent bronchiect asis to LLL, unchanged. Flutter valve as aboveRepea t CT in one year, 03/2024 Obstructiv e sleep apnea syndrome [id number] G47.33 Home study 11/15/18 with AHI 5.2.She remains on CPAP 10 cmH2O.Disc ussed the risks of uncorrecte d RK, including deathWill order repair through the [employer] with PCM for labsAdvise d good sleep habits and patterns:- Set a goal for at least 7 to 8 hours of sleep time per day.-Use the bed mainly for sleep and to go to bed only when tired. If unable to fall asleep after 30 minutes, patient should get out of bed but should not engage in any activity that requires sustained mental alertness. -Maintain a regular bedtime and wake-up time even on weekends-A void excessive naps during the daytime. If a nap is necessary, limit it to no more than 30 minutes.-M inimize environmen mane noise, bright lights, and extremes in bedroom temperatur e.-Avoid alcohol, caffeinate d beverages, and nicotine products for at least 6 hours prior to bedtime.-A void strenuous exercise and large meals for at least 4 hours prior to bedtime. Health Concerns Section Related Observation LastModified by Organization Detai ls LastModified Time None Recorded Concern Status LastModified by Organization Details LastModified Time None Recorded Advance Directives Directive N: Payers Insurance Date Sequence Insurance Name Policy Number Policy Devi Covered Member ID Devi Member ID Guarantor Name 06/23/2023 1 [place] Silvia Winter [id number] Silvia Moy 06/23/2023 2 [place] WHEN MEDICARE OR MEDICARE REPLACEMENT PRIMARY) Silvia Moy [id number] Silvia Moy Notes Date Note Type Note Provider Name and Address Organization Details Recorded Time 3 text/html Silvia presents to follow up on bronchiectasis, sputum positive for AFB with triple therapy treatment, RK, asthma, burning sensation in throat/dysphagiaShrona reports she has been doing well but continues intermittent compliance with PAPShe has a mask leak at times and tells me that she will just take it off instead of repositioningContinues to report some fatigueRare cough, does wake at night with coughing occasionally. This is associated with sour taste in her mouth.She has not been exercising.Finished triple therapy as prescribed by ID for AFB - rifampin, ethambutol, azithromycin.She denies weight loss, chest pain, thick or copious sputum production.No exacerbations in the last year requiring steroids or antibiotics.No night sweats, hemoptysis, skin or vision changes Cristel Dior, [facility] [address] [facility], [facility] [address], [place], [address], [facility] 01/18/2023 20:11:02 3 text/html 63 yo female comes in for follow up in management of well controlled type 2 DM (A1C of 5.4%), hypothyroidism, and dyslipidemia. last seen in Apr at that time we had patient continue on metformin Er 500 mg daily with dinner. We had patient uptitrate trulicity to 1.5 mg SQ weekly as patient tolerating low dose well. No hypoglycemia but has struggled with weight gain. She is taking LT4 137 mcg daily. We just sent in 150 mcg dose and just started. She is taking atorvastatin 20 mg daily at bedtime. She is doing well otherwise no new concerns. Sugars running under 120 mg/dL with no hypoglycemia. labs from 02/23/23:TSH of 7.100 uIU/mlFT4 of 1.03 ng/dLglucose 83 mg/dlLFT highiron 20%LKM/FIDEL neghepatitis negative Betty Diallo MD [address] [facility] [address], [place], [address], [place] 2023 16:29:31 3 text/html Silvia presents to follow up on bronchiectasis, sputum positive for AFB with triple therapy treatment, RK, asthmaShrona reports she has been doing well but a part on her PAP is broken and she has not had luck with getting replacement or repair.Continues to report some fatigueRare cough, does wake at night with coughing occasionally.She has not been exercising, is mostly sedentaryFinished triple therapy as prescribed by ID for AFB - rifampin, ethambutol, azithromycin.She denies weight loss, chest pain, thick or copious sputum production.No exacerbations in more than a year requiring steroids or antibiotics.No night sweats, hemoptysis, skin or vision changes NATALIE Hills [address], [address], [place], [address], [employer] 05/14/2023 15:56:12 3 text/html Silvia presents to follow up on bronchiectasis, sputum positive for AFB with triple therapy treatment, RK, asthmaShe got her replacement PAP part and has been compliant with nightly use.Continues to report some fatigueRare cough, does wake at night with coughing occasionally.Finished triple therapy as prescribed by ID for AFB - rifampin, ethambutol, azithromycin.She denies weight loss, chest pain, thick or copious sputum production.No exacerbations in more than a year requiring steroids or antibiotics.No night sweats, hemoptysis, skin or vision changesMontanae is sedentaryNo respiratory infection since last OV NATALIE Hills [address], [address], [place], [address], [place] [facility] 06/26/2023 16:10:44 OBGyn Episode No OBEpisode recorded.
--- OUTSIDE RECORDS SUMMARY | 2025-01-10 09:03 | XMS_ITS | Data Portability ---
[facility] [address] [facility] [place] [address] Assessment No assessment recorded. Plan of Treatment Reminders Order Date Submit Date Provider Last Modified By Organization Details Last Modified Time Details Appointments None recorded. Lab urinalysis complete, reflex culture 2014 015 [email or web address] [facility], [address], [address], [place], [address], 5 09:52:57 TSH, serum or plasma 2014 015 [email or web address] [facility], [address] [facility] [address], [address], [place], [address], 5 09:52:57 CMP, serum or plasma 2014 015 [email or web address] [facility], [address], [address], [place], [address], 5 09:52:57 HbA1c (hemoglobi n A1c), blood 2014 015 NATHALIE [facility], [address], [address], [place], [address], 5 07:21:02 CBC w/ auto diff 2014 015 [email or web address] [facility], [address], [address], [place], [address], 5 09:52:57 lipid panel, serum 2014 015 [email or web address] [facility], [address] [facility], [address], [place], [address], 5 09:52:57 CK (creatine kinase), total, serum 2014 015 NATHALIE [facility], [address] [facility], [address], [place], [address], 5 07:21:06 uric acid, serum or plasma 2014 015 NATHALIE [facility], [address] [facility], [address], [place], [address], 5 07:21:05 vitamin B12 + folate, serum or blood 2014 015 NATHALIE [facility], [address] [place] [address], [address], [place], [address], 5 07:21:01 vitamin D3, 25-hydroxy , serum 2014 015 NATHALIE [facility], [address] [facility], [address], [place], [address], 5 07:21:03 Referral pulmonolog ist referral - possible sleep apnea . Please eval and treat . thanks 2014 Josue [email or web address] Jorge A Rogers MD, [address] [facility], [address], [place], [address], 5 13:48:53 Procedures None recorded. Surgeries None recorded. Imaging None recorded. Medication Orders Symbicort 160 mcg-4.5 mcg/actuat ion HFA aerosol inhaler 2014 015 [email or web address] [facility][id number], [address] [facility], [place], [place], [id number], 5 12:30:35 ProAir HFA 90 mcg/actuat ion aerosol inhaler 2014 015 [email or web address] [facility], [address], [place], [place], [id number], 5 12:30:35 amitriptyl ine 100 mg tablet 2014 015 [email or web address] 6 [facility], [address], [place], [place], [id number], 5 12:30:36 Debrox 6.5 % ear drops 2014 015 [email or web address] [facility], [address], [place], [place], [id number], 5 12:30:35 levothyrox ine 50 mcg tablet 2014 015 [email or web address] 6 [facility], [address], [place], [place], [id number], 5 12:30:35 Symbicort 160 mcg-4.5 mcg/actuat ion HFA aerosol inhaler 2014 [address] [facility], [address], [place], [place], [id number], 5 12:03:12 ProAir HFA 90 mcg/actuat ion aerosol inhaler 2014 0[address] INTER[address] [facility], [address], [place], [place], [id number], 5 12:03:13 alendronat e 70 mg tablet 2014 015 [email or web address] 6 [facility], [address], [place], [place], [id number], 5 12:01:54 atorvastat in 40 mg tablet 2014 015 [email or web address] 6 [facility] #18694, [address], [place], [place], [id number], 5 12:01:54 trazodone 50 mg tablet 2014 015 [email or web address] 6 [facility] #20932, [address], [place], [place], [id number], 5 16:42:32 cyclobenza susie 10 mg tablet 2014 015 [email or web address] 6 [facility] #43196, [address], [place], [place], [id number], 5 16:42:32 prednisone 20 mg tablet 2014 015 [email or web address] 6 [facility] #45144, [address], [place], [place], [id number], 5 16:42:32 ciprofloxa luis felipe 500 mg tablet 2014 015 [email or web address] 6 [facility] #55798, [address], [place], [place], [id number], 5 16:42:32 levothyrox ine 50 mcg tablet 2014 015 [email or web address] 6 [facility] #14421, [address], [place], [place], [id number], 5 16:42:33 Patient TargetsNo targets recorded. Patient InstructionsNo instructions recorded. 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 Please eval and treat . thanks Referring Physician: Noel Maria, Family Medicine, Encounter Date: 07/16/2015 Results Created Date Observation Date Name Description Value Unit Range Abnormal Flag Note LastModifiedBy Organization Detail LastModifiedTime 04/08/20 15 04/09/2015 CBC w/ auto diff WBC 13.1 x10e3 /uL 3.4-10 .8 above high normal Not Available [facility] ([facility]) [address] [place], [address], 04/10/2015 07:21:00 04/08/20 15 04/09/2015 CBC w/ auto diff RBC 4.33 x10e6 /uL 3.77-5 .28 Not Available [facility] ([facility]) [address] [place], [address], 04/10/2015 07:21:00 04/08/20 15 04/09/2015 CBC w/ auto diff hemoglobin 14.1 g/dL 11.1-1 5.9 Not Available [facility] ([facility]) [address] [place], [address], 04/10/2015 07:21:00 04/08/20 15 04/09/2015 CBC w/ auto diff hematocrit 42.8 % 34.0-4 6.6 Not Available [facility] ([facility]) [address] [place], [address], 04/10/2015 07:21:00 04/08/20 15 04/09/2015 CBC w/ auto diff MCV 99 fL 79-97 above high normal Not Available [facility] ([facility]) [address] [place], [address], 04/10/2015 07:21:00 04/08/20 15 04/09/2015 CBC w/ auto diff MCH 32.6 pg 26.6-3 3.0 Not Available [facility] ([facility]) [address] [place], [address], 04/10/2015 07:21:00 04/08/20 15 04/09/2015 CBC w/ auto diff MCHC 32.9 g/dL 31.5-3 5.7 Not Available [facility] ([facility]) [address], [place], [address], 04/10/2015 07:21:00 04/08/20 15 04/09/2015 CBC w/ auto diff RDW 12.9 % 12.3-1 5.4 Not Available [facility] ([facility]) [address], [place], [address], 04/10/2015 07:21:00 04/08/2004/09/2015 CBC w/ auto diff platelets 282 x10e3 /uL 150-37 9 Not Available [facility] ([facility]) [address] [facility], [place], [address], 04/10/2015 07:21:00 04/08/20 15 04/09/2015 CBC w/ auto diff neutrophils 58 % Not Available [facility]) [address] [facility], [place], [address], 04/10/2015 07:21:00 04/08/20 15 04/09/2015 CBC w/ auto diff lymphs 31 % Not Available [facility] ([facility]) [address] [facility], [place], [address], 04/10/2015 07:21:00 04/08/2004/09/2015 CBC w/ auto diff monocytes 9 % Not Available [facility] ([facility]) [address] [facility], [place], [address], 04/10/2015 07:21:00 04/08/20 15 04/09/2015 CBC w/ auto diff eos 2 % Not Available [facility] ([facility]) [address] [facility], [place], [address], 04/10/2015 07:21:00 04/08/20 15 04/09/2015 CBC w/ auto diff basos 0 % Not Available [facility] ([facility]) [address] [place], [address], 04/10/2015 07:21:00 04/08/20 15 04/09/2015 CBC w/ auto diff immature cells [place] Not Available [facility]) [address] [place], [address], 04/10/2015 07:21:00 04/08/20 15 04/09/2015 CBC w/ auto diff neutrophils (absolute) 7.7 x10e3 /uL 1.4-7. 0 above high normal Not Available [facility] ([facility]) [address] [place], [address], 04/10/2015 07:21:00 04/08/20 15 04/09/2015 CBC w/ auto diff lymphs (absolute) 4.0 x10e3 /uL 0.7-3. 1 above high normal Not Available [facility] ([facility]) [address] [place], [address], 04/10/2015 07:21:00 04/08/20 15 04/09/2015 CBC w/ auto diff monocytes(ab solute) 1.2 x10e3 /uL 0.1-0. 9 above high normal Not Available [facility] ([facility]) [address] [place], [address], 04/10/2015 07:21:00 04/08/20 15 04/09/2015 CBC w/ auto diff eos (absolute) 0.2 x10e3 /uL 0.0-0. 4 Not Available [facility] ([facility]) [address] [place], [address], 04/10/2015 07:21:00 04/08/20 15 04/09/2015 CBC w/ auto diff baso (absolute) 0.0 x10e3 /uL 0.0-0. 2 Not Available [facility] ([facility]) [address] [facility], [place], [address], 04/10/2015 07:21:00 04/08/20 15 04/09/2015 CBC w/ auto diff immature granulocytes 0 % Not Available [facility]) [address] [facility] [place], [address], 04/10/2015 07:21:00 04/08/20 15 04/09/2015 CBC w/ auto diff immature grans (abs) 0.0 x10e3 /uL 0.0-0. 1 Not Available [facility] ([facility]) [address] [facility], [place], [address], 04/10/2015 07:21:00 04/08/2004/09/2015 CBC w/ auto diff NRBC [place] Not Available [facility] ([facility]) [address] [facility], [place], [address], 04/10/2015 07:21:00 04/08/2004/09/2015 CBC w/ auto diff hematology comments: [place] Not Available [facility]) [address] [facility], [place], [address], 04/10/2015 07:21:00 04/08/20 15 04/09/2015 CMP, serum or plasm a glucose, serum 83 mg/dL 65-99 Not Available [facility] ([facility]) [address] [facility] [place], [address], 04/10/2015 07:21:00 04/08/20 15 04/09/2015 CMP, serum or plasm a BUN 12 mg/dL 6-24 Not Available [facility] ([facility]) [address] [facility] [place], [address], 04/10/2015 07:21:00 04/08/20 15 04/09/2015 CMP, serum or plasm a creatinine, serum 0.77 mg/dL 0.57-1 .00 Not Available [facility] ([facility]) [address] [place], [address], 04/10/2015 07:21:00 04/08/20 15 04/09/2015 CMP, serum or plasm a eGFR if nonafricn AM 87 mL/mi n/1.7 3 >59 Not Available [facility] ([facility]) [address] [facility], [place], [address], 04/10/2015 07:21:00 04/08/20 15 04/09/2015 CMP, serum or plasm a eGFR if africn AM 101 mL/mi n/1.7 3 >59 Not Available [facility] ([facility]) [address] [facility], [place], [address], 04/10/2015 07:21:00 04/08/2004/09/2015 CMP, serum or plasm a BUN/creatini ne ratio 16 9-23 Not Available [facility] ([facility]) [address] [place], [address], 04/10/2015 07:21:00 04/08/2004/09/2015 CMP, serum or plasm a sodium, serum 140 mmol/ L 134-14 4 Not Available [facility] ([facility]) [address] [place], [address], 04/10/2015 07:21:00 04/08/2004/09/2015 CMP, serum or plasm a potassium, serum 3.6 mmol/ L 3.5-5. 2 Not Available [facility] ([facility]) [address] [place], [address], 04/10/2015 07:21:00 04/08/2004/09/2015 CMP, serum or plasm a chloride, serum 101 mmol/ L 97-108 Not Available [facility] ([facility]) [address] [place], [address], 04/10/2015 07:21:00 04/08/2004/09/2015 CMP, serum or plasm a carbon dioxide, total 26 mmol/ L 18-29 Not Available [facility] ([facility]) [address] [place], [address], 04/10/2015 07:21:00 04/08/2004/09/2015 CMP, serum or plasm a calcium, serum 9.0 mg/dL 8.7-10 .2 Not Available [facility] ([facility]) [address] [place], [address], 04/10/2015 07:21:00 04/08/2004/09/2015 CMP, serum or plasm a protein, total, serum 6.5 g/dL 6.0-8. 5 Not Available [facility] ([facility]) [address] [place], [address], 04/10/2015 07:21:00 04/08/2004/09/2015 CMP, serum or plasm a albumin, serum 4.3 g/dL 3.5-5. 5 Not Available [facility] ([facility]) [address] [place], [address], 04/10/2015 07:21:00 04/08/2004/09/2015 CMP, serum or plasm a globulin, total 2.2 g/dL 1.5-4. 5 Not Available [facility] ([facility]) [address] [place], [address], 04/10/2015 07:21:00 04/08/2004/09/2015 CMP, serum or plasm a A/G ratio 2.0 1.1-2. 5 Not Available [facility] ([facility]) [address] [place], [address], 04/10/2015 07:21:00 04/08/2004/09/2015 CMP, serum or plasm a bilirubin, total 0.4 mg/dL 0.0-1. 2 Not Available [facility] ([facility]) [address] [place], [address], 04/10/2015 07:21:00 04/08/2004/09/2015 CMP, serum or plasm a alkaline phosphatase, S 106 IU/L 39-117 Not Available [facility] ([facility]) [address] [facility], [place], [address], 04/10/2015 07:21:00 04/08/2004/09/2015 CMP, serum or plasm a AST (SGOT) 14 IU/L 0-40 Not Available [facility] ([facility]) [address] [place], [address], 04/10/2015 07:21:00 04/08/2004/09/2015 CMP, serum or plasm a ALT (SGPT) 18 IU/L 0-32 Not Available [facility] ([facility]) [address] [place], [address], 04/10/2015 07:21:00 04/08/2004/09/2015 urina lysis compl ete, refle x cultu re specific gravity 1.014 1.005- 1.030 Not Available [facility] ([facility]) [address] [place], [address], 04/10/2015 07:21:00 04/08/2004/09/2015 urina lysis compl ete, refle x cultu re pH 7.0 5.0-7. 5 Not Available [facility] ([facility]) [address] [place], [address], 04/10/2015 07:21:00 04/08/2004/09/2015 urina lysis compl ete, refle x cultu re urine-color YELLOW yellow Not Available [facility] ([facility]) [address] [place], [address], 04/10/2015 07:21:00 04/08/2004/09/2015 urina lysis compl ete, refle x cultu re appearance CLOUDY clear abnormal Not Available [facility] ([facility]) [address] [place], [address], 04/10/2015 07:21:00 04/08/20 15 04/09/2015 urina lysis compl ete, refle x cultu re WBC esterase 1+ negati ve abnormal Not Available [facility] ([facility]) [address] [place], [address], 04/10/2015 07:21:00 04/08/20 15 04/09/2015 urina lysis compl ete, refle x cultu re protein NEGATI VE negati ve/tra ce Not Available [facility] ([facility]) [address] [place], [address], 04/10/2015 07:21:00 04/08/20 15 04/09/2015 urina lysis compl ete, refle x cultu re glucose NEGATI VE negati ve Not Available [facility] ([facility]) [address] [place], [address], 04/10/2015 07:21:00 04/08/20 15 04/09/2015 urina lysis compl ete, refle x cultu re glucose reflex [place] Not Available [facility] ([facility]) [address] [place], [address], 04/10/2015 07:21:00 04/08/20 15 04/09/2015 urina lysis compl ete, refle x cultu re ketones NEGATI VE negati ve Not Available [facility] ([facility]) [address] [place], [address], 04/10/2015 07:21:00 04/08/20 15 04/09/2015 urina lysis compl ete, refle x cultu re occult blood NEGATI VE negati ve Not Available [facility] ([facility]) [address] [place], [address], 04/10/2015 07:21:00 04/08/20 15 04/09/2015 urina lysis compl ete, refle x cultu re bilirubin NEGATI VE negati ve Not Available [facility] ([facility]) [address] [place], [address], 04/10/2015 07:21:00 04/08/20 15 04/09/2015 urina lysis compl ete, refle x cultu re urobilinogen ,semi-qn 0.2 mg/dL 0.0-1. 9 Not Available [facility] ([facility]) [address] [place], [address], 04/10/2015 07:21:00 04/08/20 15 04/09/2015 urina lysis compl ete, refle x cultu re nitrite, urine NEGATI VE negati ve Not Available [facility] ([facility]) [address] [place], [address], 04/10/2015 07:21:00 04/08/2004/09/2015 urina lysis compl ete, refle x cultu re microscopic examination SEE BELOW: MICRO SCOPI C WAS INDIC ATED AND WAS PERFO RMED. Not Available [facility] ([facility]) [address] [place], [address], 04/10/2015 07:21:00 04/08/20 15 04/09/2015 urina lysis compl ete, refle x cultu re WBC 6-10 /hpf 0 - 5 abnormal Not Available [facility] ([facility]) [address] [place], [address], 04/10/2015 07:21:00 04/08/20 15 04/09/2015 urina lysis compl ete, refle x cultu re RBC 0-2 /hpf 0 - 2 Not Available [facility] ([facility]) [address] [place], [address], 04/10/2015 07:21:00 04/08/20 15 04/09/2015 urina lysis compl ete, refle x cultu re epithelial cells (non renal) 0-10 /hpf 0 - 10 Not Available [facility] ([facility]) [address] [facility], [place], [address], 04/10/2015 07:21:00 04/08/20 15 04/09/2015 urina lysis compl ete, refle x cultu re epithelial cells (renal) [place] Not Available [facility]) [address] [facility], [place], [address], 04/10/2015 07:21:00 04/08/20 15 04/09/2015 urina lysis compl ete, refle x cultu re casts [place] Not Available [facility] ([facility]) [address] [facility], [place], [address], 04/10/2015 07:21:00 04/08/20 15 04/09/2015 urina lysis compl ete, refle x cultu re cast type [place] Not Available [facility] ([facility]) [address] [facility], [place], [address], 04/10/2015 07:21:00 04/08/20 15 04/09/2015 urina lysis compl ete, refle x cultu re crystals [place] Not Available [facility] ([facility]) [address] [place], [address], 04/10/2015 07:21:00 04/08/20 15 04/09/2015 urina lysis compl ete, refle x cultu re crystal type [place] Not Available [facility]) [address] [place], [address], 04/10/2015 07:21:00 04/08/20 15 04/09/2015 urina lysis compl ete, refle x cultu re mucus threads PRESEN T not estab. Not Available [facility] ([facility]) [address] [facility], [place], [address], 04/10/2015 07:21:00 04/08/20 15 04/09/2015 urina lysis compl ete, refle x cultu re bacteria FEW none seen/f ew Not Available [facility] ([facility]) [address] [facility], [place], [address], 04/10/2015 07:21:00 04/08/20 15 04/09/2015 urina lysis compl ete, refle x cultu re yeast [place] Not Available [facility] ([facility]) [address] [facility], [place], [address], 04/10/2015 07:21:00 04/08/20 15 04/09/2015 urina lysis compl ete, refle x cultu re trichomonas [place] Not Available [facility]) [address] [facility], [place], [address], 04/10/2015 07:21:00 04/08/20 15 04/09/2015 urina lysis compl ete, refle x cultu re comment [place] Not Available [facility] ([facility]) [address] [facility], [place], [address], 04/10/2015 07:21:00 04/08/20 15 04/09/2015 urina lysis compl ete, refle x cultu re urinalysis reflex COMMEN T THIS SPECI MEN HAS REFLE XED TO A URINE CULTU RE. Not Available [facility] ([facility]) [address] [facility], [place], [address], 04/10/2015 07:21:00 04/08/20 15 04/10/2015 urina lysis compl ete, refle x cultu re urine culture, routine FINAL REPORT Not Available [facility] ([facility]) [address] [facility], [place], [address], 04/10/2015 07:21:00 04/08/20 15 04/10/2015 urina lysis compl ete, refle x cultu re result 1 NO GROWTH Not Available [facility] ([facility]) [address] [place], [address], 04/10/2015 07:21:00 04/08/20 15 04/09/2015 lipid panel , serum cholesterol, total 232 mg/dL 100-19 9 above high normal Not Available [facility] ([facility]) [address] [place], [address], 04/10/2015 07:21:01 04/08/20 15 04/09/2015 lipid panel , serum triglyceride s 298 mg/dL 0-149 above high normal Not Available [facility] ([facility]) [address] [place], [address], 04/10/2015 07:21:01 04/08/20 15 04/09/2015 lipid panel , serum HDL cholesterol 63 mg/dL >39 ACCOR DING TO ATP-I II GUIDE LINES , HDL-C >59 MG/DL IS CONSI DERED A NEGAT YAYA RISK FACTO R FOR CHD. Not Available [facility] ([facility]) [address] [place], [address], 04/10/2015 07:21:01 04/08/20 15 04/09/2015 lipid panel , serum VLDL cholesterol melanie 60 mg/dL 5-40 above high normal Not Available [facility] ([facility]) [address] [place], [address], 04/10/2015 07:21:01 04/08/20 15 04/09/2015 lipid panel , serum LDL cholesterol calc 109 mg/dL 0-99 above high normal Not Available [facility] ([facility]) [address] [place], [address], 04/10/2015 07:21:01 04/08/20 15 04/09/2015 lipid panel , serum comment: [place] Not Available [facility] ([facility]) [address] [facility] [place], [address], 04/10/2015 07:21:01 04/08/2004/09/2015 lipid panel , serum LDL/HDL ratio 1.7 ratio _unit s 0.0-3. 2 LDL/H DL RATIO MEN WOMEN 1/2 AVG.R ISK 1.0 1.5 AVG.R ISK 3.6 3.2 2X AVG.R ISK 6.2 5.0 3X AVG.R ISK 8.0 6.1 Not Available [facility] ([facility]) [address] [facility], [place], [address], 04/10/2015 07:21:04/08/2004/09/2015 vitam in B12 + folat e, serum or blood vitamin B12 795 pg/mL 211-94 6 Not Available [facility] ([facility]) [address] [place], [address], 04/10/2015 07:21:01 04/08/2004/09/2015 vitam in B12 + folat e, serum or blood folate (folic acid), serum >20.0 NG/mL >3.0 A SERUM FOLAT E JOSSIE NTRAT ION OF LESS THAN 3.1 NG/ML IS CONSI DERED TO REPRE SENT CLINI MELANIE DEFIC IENCY . Not Available [facility] ([facility]) [address] [facility], [place], [address], 04/10/2015 07:21:01 04/08/2004/09/2015 HbA1c (hemo globi n A1c), blood hemoglobin A1C 5.4 % 4.8-5. 6 INCRE ASED RISK FOR DIABE ALLISON: 5.7 - 6.4 DIABE ALLISON: >6.4 GLYCE KELSIE CONTR OL FOR ADULT S WITH DIABE ALLISON: <7.0 Not Available [facility] ([facility]) [address] [facility], [place], [address], 04/10/2015 07:21:02 04/08/2004/09/2015 vitam in D3, 25-hy droxy , serum vitamin D, 25-hydroxy 35.3 NG/mL 30.0-1 00.0 VITAM IN D DEFIC IENCY HAS BEEN DEFIN ED BY THE INSTI [facility] OF MEDIC INE AND AN ENDOC RINE SOCIE TY PRACT ICE GUIDE LINE A LEVEL OF SERUM 25-OH VITAM IN D LESS THAN 20 NG/ML (1,2) . THE ENDOC RINE SOCIE TY WENT ON TO FURTH ER DEFIN E VITAM IN D INSUF FICIE NCY A LEVEL BETWE EN 21 AND 29 NG/ML (2). 1. IOM ([facility] OF MEDIC INE). 2010. DIETA RY REFER ENCE INDIGO ES FOR CALCI UM AND D. VINICIO MCFADDEN DC: THE [facility] PRESS . 2. GENESIS Ledesma MF, HARDY PLASCENCIA NC, DONG OFF-F DWAYNE I GALLAGHER, ET AL. EVALU ATION , TREAT MENT, AND PREVE NTION OF VITAM IN D DEFIC IENCY : AN ENDOC RINE SOCIE TY CLINI MELANIE PRACT ICE GUIDE LINE. JCEM. 2010; 96(7) :1911 -30. Not Available [facility] ([facility]) [address] [place], [address], 04/10/2015 07:21:03 04/08/20 15 04/09/2015 TSH, serum or plasm a TSH 4.800 uIU/m L 0.450- 4.500 above high normal Not Available [facility] ([facility]) [address] [place], [address], 04/10/2015 07:21:04 04/08/2004/09/2015 TSH, serum or plasm a T4,free (direct) 1.38 NG/dL 0.82-1 .77 Not Available [facility] ([facility]) [address] [place], [address], 04/10/2015 07:21:04 04/08/20 15 04/09/2015 uric acid, serum or plasm a uric acid, serum 3.8 mg/dL 2.5-7. 1 THERA PEUTI C TARGE T FOR GOUT PATIE NTS: <6.0 Not Available [facility] ([facility]) [address] [facility], [place], [address], 04/10/2015 07:21:05 04/08/20 15 04/09/2015 CK (traci lisa e), total , serum creatine kinase,total ,serum 35 U/L 24-173 Not Available [facility] ([facility]) [address] [facility], [place], [address], 04/10/2015 07:21:06 09/25/19 16 09/25/2015 imagi ng/di agnos tic resul t No observ ation record ed. [address] [place], [address], 09/28/2015 11:48:04 09/29/19 16 09/25/2015 imagi ng/di agnos tic resul t No observ ation record ed. [email or web address] [place], [address], 10/20/2015 16:13:01 Result Notes None recorded. Problems Name Problem SNOMED Code Status Onset Date Resolution Date Notes Provider Name and Address Organization Details Recorded Time Low back pain 666717950 Active Noel Maria PA-C Attn: Jair sosa,[address] [facility], [place], [address], [place] - [facility] 5 12:30:35 Sinusitis 15997161 Active Noel Maria PA-C Attn: Accountin g,[address] [facility], [place], [address], [place] [facility] 5 16:42:32 Insomnia 905703248 Active Noel Maria PA-C Attn: Accountin g,[address] [facility], [place], [address], [place] SI[facility] 6 19:42:24 Hypothyroidism [id number] Active Noel Maria PA-C Attn: Jair sosa,[address] [facility], [place], [address], [place] SI[facility] 5 12:30:35 Hyperlipidemia [id number] Active Noel Maria PA-C Attn: Jair sosa,[address] [facility], [place], [address], [place] SI[facility] 5 12:30:35 Osteoporosis 21618976 Active Noel Maria PA-C Attn: Jair sosa,[address] [facility], [place], [address], [place] [facility] 5 12:30:35 Asthma 026297117 Active Noel Maria PA-C Attn: Jair sosa,[address] [facility], [place], [address], [place] [facility] 6 17:35:35 Wax in ear canal 610314399 Active Noel Maria PA-C Attn: Jair sosa,[address] [facility], [place], [address], [place] [facility] 5 12:30:35 Gasping for breath 08707191 Active Noel Maria PA-C Attn: Jair sosa,[address] [facility], [place], [address], [place] [facility] 5 12:30:35 Essential hypertension 01001139 Active Noel Maria PA-C Attn: Jair sosa,[address] [facility], [place], [address], [place] [facility] 6 12:18:08 Problem Notes None recorded. Medical Equipment None Reported. Allergies No known drug allergies Medications Name Sig Start Date Stop Date Status Note LastModified by Organization Details LastModified Time losartan 50 mg tablet Take 1 tablet every day by oral route in the morning for 30 days. active Not Available Not Available No t Available cyclobenzapr ine 10 mg tablet TAKE 1 TABLET BY MOUTH EVERY NIGHT AT BEDTIME active Not Available Not Available No t Available atorvastatin 40 mg tablet Take 1 tablet every day by oral route for 90 days. active Not Available Not Available No t Available atorvastatin 20 mg tablet active Not Available Not Available Not Available trazodone 50 mg tablet Take 1 tablet every day by oral route at bedtime for 30 days. active Not Available Not Available No t Available prednisone 20 mg tablet SEE NOTES active Not Available Not Availab le Not Available alendronate 70 mg tablet TAKE 1 TABLET BY MOUTH EVERY WEEK active Not Available Not Available No t Available Debrox 6.5 % ear drops Instill 10 drops every day by otic route for 7 days. 2014 active Not Available Not Available Not Avai lable ciprofloxaci n 500 mg tablet Take 1 tablet every 12 hours by oral route for 10 days. active Not Available Not Available No t Available levothyroxin e 75 mcg tablet Take 1 tablet every day by oral route in the morning for 30 days. active Not Available Not Available No t Available levothyroxin e 50 mcg tablet Take 1 tablet every day by oral route in the morning for 30 days. 2014 active Not Available Not Available Not Avai lable nortriptylin e 10 mg capsule active Not Available Not Available Not Available ranitidine 150 mg tablet active Not Available Not Available Not Available mirtazapine 15 mg tablet Take 1 tablet as needed by oral route at bedtime for 90 days. active Not Available Not Available No t Available amitriptylin e 100 mg tablet Take 1 tablet every day by oral route at bedtime for 30 days. active Not Available Not Available No t Available Ventolin HFA 90 mcg/actuatio n aerosol inhaler Inhale 2 puffs 3 times a day by inhalation route as needed. active Not Available Not Available No t Available Symbicort 160 mcg-4.5 mcg/actuatio n HFA aerosol inhaler Inhale 2 puffs BID active Not Available Not Available No t Available Vitals Date Recorded Body weight Oxygen saturation Oxygen saturation in Arterial blood by Pulse oximetry Body height Body mass index (BMI) Body temperature Heart rate Systolic blood pressure Diastolic blood pressure Provider Name and Address Organization Details Last Updated DateTime 5 09408.0 52449 g 97 % 97 % 149.86 cm 29.4 kg/m2 98.5 [degF] 92 /min 132 mm[Hg] 88 mm[Hg] [place], [place] - [facility] 5 16:21:50 Date Recorded Body weight Oxygen saturation Oxygen saturation in Arterial blood by Pulse oximetry Body height Body mass index (BMI) Body temperature Heart rate Systolic blood pressure Diastolic blood pressure Provider Name and Address Organization Details Last Updated DateTime 5 02897.2 28907 g 100 % 100 % 149.86 cm 30.6 kg/m2 97.6 [degF] 95 /min 120 mm[Hg] 90 mm[Hg] Lacey Booht [place] [facility] 5 11:28:04 Date Recorded Body weight Oxygen saturation Oxygen saturation in Arterial blood by Pulse oximetry Body height Body mass index (BMI) Body temperature Heart rate Systolic blood pressure Diastolic blood pressure Provider Name and Address Organization Details Last Updated DateTime 5 51874.4 4787 g 99 % 99 % 149.86 cm 30.5 kg/m2 97.8 [degF] 86 /min 132 mm[Hg] 96 mm[Hg] Lacey Booth MA [facility] 5 12:11:42 Social History None recorded. Functional Status None recorded. Mental Status None recorded. Family History Nothing Reported. Medical History No medical history recorded. Gynecological HistoryNo gynecological history recorded. Obstetrics History GPAL:G 0 P 0 0 0 0 Immunizations Vaccine Type Date Status Note Provider Nam e and Address Organization Details Recorded Time COVID-19, mRNA, LNP-S, PF, 30 mcg/0.3 mL dose 1 completed Caroline ayala, [place] - [facility] 02/09/2021 13:27:27 COVID-19, mRNA, LNP-S, PF, 30 mcg/0.3 mL dose 1 completed Caroline ayala, [place] - [facility] 02/09/2021 13:27:48 Influenza, split virus, quadrivalent, preservative 5 completed Not Available [employer] 08/17/2019 02:32:10 Past Encounters Encounter ID Performer Location Encounter Start Date Encounter Closed Date Diagnosis/Indication Diagnosis SNOMED-CT Code Diagnosis ICD10 Code Diagnosis Note [id number] KARLA Donaldson (Adult Med) [address] [place] [address] 03/13/2015 15:36:18 03/13/2015 16:47:27 Low back pain 899426297 Sinusitis 75246232 Insomnia 923525471 Hypothyroidism 38938707 Hyperlipidemia 01512243 [id number] KARLA Donaldson (Adult Med) [address] [place] [phone] 0 05/15/2015 10:50:16 05/15/2015 12:13:59 Hyperlipidemia 62553022 E78.5 Hypothyroidism 20407987 E03.9 Insomnia 020514189 G47.0 0 Low back pain 315413194 M54.5 Osteoporosis 59030787 M8 1.0 Active or passive immunization 936563840 Z23 Asthma 530868621 J45.90 9 [id number] KARLA Donaldson (Adult Med) [address] [place] [id number] 0 07/16/2015 11:44:26 07/16/2015 12:48:18 Asthma 842509898 J45.909 Hyperlipidemia 05486006 E78.5 Hypothyroidism 43819000 E03.9 Insomnia 126996484 G47.0 0 Low back pain 385723450 M54.5 Osteoporosis 90831158 M8 1.0 Wax in ear canal 6485592 02 H61.23 Gasping for breath 05156 003 R06.09 at night 10 years Health Concerns Section Related Observation LastModified by Organization Detai ls LastModified Time None Recorded Concern Status LastModified by Organization Details LastModified Time None Recorded Advance Directives Directive None Recorded Payers Insurance Date Sequence Insurance Name Policy Number Policy Devi Covered Member ID Devi Member ID Guarantor Name 05/13/2015 2 [place] Silvia Wniter [id number] Silvia Winter 07/13/2015 1 [place] Silvia Winter [id number] Silvia Winter 07/13/2015 [place]ICARE A[place]: [facility] Silvia Winter [id number] Silvia Winter 07/13/2015 2 [place] WHEN MEDICARE OR MEDICARE REPLACEMENT PRIMARY) Silvia Winter [id number] Silvia Winter OBGyrafa Episode No OBEpisode recorded.
== END 2025-01-10 08:56 | disposition home or self-care (01) ==
LOC: ANHIMG 08:57
PROVIDERS: PCP Nurse Practitioner; Visit Provider Nurse Practitioner
DX: M81.8 Other osteoporosis without current pathological fracture (principal); M85.852 Other specified disorders of bone density and structure, left thigh; M85.851 Other specified disorders of bone density and structure, right thigh
CPT/HCPCS: 77080

== ENCOUNTER 2025-03-26 14:23 | Outpatient (CLI) | payer MEDICARE, MEDICAID, SELFPAY ==
--- OUTSIDE RECORDS SUMMARY | 2025-03-26 14:32 | XMS_ITS | Clinical Summary ---
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 3 Active lisinopril-hydro CHLOROthiazide (ZESTORETIC) [...] Department Care Team Description 01/06/2025 Results Follow-Up [facility] at [address] [place] [address] Ruslan Andre DO Aerobic culture and gram stain Sputum Sputum 01/02/2025 11:00 AM CDT Office Visit [facility] at [place] [address] [facility] [address] [place] [address] Ruslan Andre DO Moderate persistent asthma without complication (Primary Dx); Bronchiectasis without acute exacerbation (HCC) 01/02/2025 9:59 AM CDT - 01/02/2025 11:59 PM CDT Hospital Encounter [facility] [address] [place] [address] Bronchiectasis without acute exacerbation (HCC) Discharge Disposition: Discharge to home or self care from Last 3 Months Medical History Medical History Date Comments COPD (chronic obstructive pulmonary disease) Asthma Family History Medical History Relation Name Comments COPD Father Diabetes Father Heart disease Father COPD Mother Heart disease Mother COPD Sister Mariella perezershannon dm Sister Mariella Relation Name Status Comments Father Mother Sister Mariella Alive Social History Tobacco Use Types Packs/Day Years Used Date Smoking Tobacco: Former Cigarettes Passive Smoke Exposure: Past Tobacco Cessation:Counseling Given: Not Answered Comments:10/01/2024 Patient said that she only smoked for 10days. 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 Gender Identity Not on file Sexual Orientation [...] Colon Cancer Screening-Colonoscopy 1960 Depression Screening 1960 Fall Risk Assessment 1960 Hepatitis C Screening 1960 Osteoporosis Screening-Bone Density Scan 1960 DTaP/Tdap/Td Vaccine (1 - Tdap) 1971 Hepatitis B Screening 1978 Covid-19 Vaccine (3 - Pfizer risk series) 12/19/2020 11/21/2020, 10/27/2020 Breast Cancer Screening-Mammogram 08/09/2023 023, 08/09/2022 Well Visit 65+ 2025 Influenza Vaccine (#1) 2025 , 03/31/2023, 05/23/2022, Additional history exists Cervical Cancer Screening 07/22/2025 07/22/2024 Pneumococcal vaccine 65+ (3 of 3 - PCV20 or PCV21) 05/23/2027 05/23/2022, 11/23/2015 Zoster Vaccine Completed 06/12/2023, 03/31/2023 Procedures Procedure Name Priority Date/Time Associated Diagnosis [...] Abdifatah Hanna MLS Comment:Testing performed by : [facility], [address] [place] [address] Report Final Report: This is the final report. PRINCE PETERSON (BELA) Comment:Testing performed by : [facility], [address] [place]., [address] Sputum (Sputum) 01/02/2025 1 0:12 AM CDT 01/02/2025 12:23 PM CDT Narrative PRINCE PETERSON (BELA) - 01/03/2025 8:00 AM CDT Testing performed by [facility] ([phone]) Specimens submitted from normally sterile body sites [...] GENERA L ORDERABLES Final Result [facility] [address] [facility] Department [place] [address] from Last 3 Months Insurance [facility] MEDICARE Care Teams Infrastructure Security Architect Relationship Specialty Start Date End Date Unknown, Notinfile PCP - General 09/20/23
[2025-03-26 14:58] LABS: Hematocrit 38.6 % (37.0-47.0); Hemoglobin 12.7 g/dL (12.0-15.0); Mean Corpuscular HGB Conc 32.9 g/dl (32-36); Mean Corpuscular Hemoglobin 32.3 pg (26-34); Mean Corpuscular Volume 98.2 fl (80-100); Platelet Count Result 272 k/mm3 (150-375); Red Blood Count 3.93 M/mm3 (4.2-5.4); White Blood Count 9.6 K/mm3 (4.5-10.0)
[2025-03-26 15:25] LABS: Alanine Aminotransferase 62 U/L (6-35); Albumin Level 4.2 g/dL (3.5-5.1); Alkaline Phosphatase 204 U/L (38-126); Anion Gap 6 mmol/L (4-12); Aspartate Amino Transferase 72 U/L (14-36); Bilirubin,Total 0.6 mg/dL (0.2-1.3); Blood Urea Nitrogen 18 mg/dL (7-17); Calcium 9.0 mg/dL (8.4-10.2); Carbon Dioxide 35 mmol/L (22-30); Chloride 97 mmol/L (98-107); Estimated Glomerular Filt Rate > 60; Glucose 92 mg/dL (65-110); Potassium 3.5 mmol/L (3.4-5.0); Sodium 138 mmol/L (137-145); Total Protein 7.1 g/dL (6.3-8.2)
== END 2025-03-26 14:24 | disposition home or self-care (01) ==
PROVIDERS: PCP Nurse Practitioner; Visit Provider Nurse Practitioner Family
DX: K76.0 Fatty (change of) liver, not elsewhere classified (principal)
CPT/HCPCS: 36415; 80053; 85027